=== PATIENT | male | born 1985 | race Two or more races ===

== ENCOUNTER 2016-10-08 08:07 | Day surgery (SDC) | payer BC, MEDICAID ==
[2016-10-08] MEDS ORDERED: Lactated Ringers 1,000 ML IV SCH (08:15)
[2016-10-08] MEDS ORDERED: Sodium Chloride 0.9% 10 ML Syringe FLUSH PRN (08:15)
[2016-10-08] MEDS ORDERED: Lidocaine 2% 100 MG/5 ML Syringe IVPUSH ONE (10:00)
[2016-10-08] MEDS ORDERED: Midazolam 1 MG/ML 2 ML SDV IV ONE (10:00)
[2016-10-08] MEDS ORDERED: fentaNYL 100 MCG/2 ML SDV IV ONE (10:00)
[2016-10-08] MEDS ORDERED: Propofol 200 MG/20 ML SDV IV ONE (10:00)
--- NOTE | 2016-10-08 10:26 | PCM.OPNOTE ---
- General Post-Op/Procedure Note Date of Surgery/Procedure: 10/08/16 Operative Procedure(s): egd with bx Findings: gastritis irregular z line Pre Op Diagnosis: hx of H pylori infection Post-Op Diagnosis: gastritis. irregular z line Anesthesia Technique: MAC Primary Surgeon: Abilio Sanderson Anesthesia Provider: Hoa Ge Pathology: stomach and esophagus Complications: None Condition: Good Free Text/Narrative:: see dictation
[2016-10-08 11:51] VITALS: BP 113/65
--- NOTE | 2016-10-08 16:03 | OR ---
DATE OF OPERATION: 10/08/2016 SURGEON: Abilio Sanderson MD PROCEDURE PERFORMED: Esophagogastroduodenoscopy with cold forceps biopsy. PREOPERATIVE DIAGNOSIS: History of Helicobacter pylori with return of symptoms. POSTOPERATIVE DIAGNOSIS: Gastritis and irregular Z-line. INDICATIONS FOR PROCEDURE: This is a 30-year-old white male, who was recently treated for Helicobacter pylori. His symptoms have returned, and he was offered and accepted an EGD. DESCRIPTION OF OPERATION: After an excellent IV sedation was administered, the bite block was inserted. The flexible endoscope was passed without difficulty down the patient's esophagus into the stomach. The stomach was insufflated. Scope was passed through the pylorus to the second portion of the duodenum and slowly withdrawn. The following findings were noted. Duodenum was unremarkable. Stomach demonstrated diffuse gastritis. Multiple biopsies were taken. On withdrawing the scope to the esophagus, there was noted to have a highly irregular Z-line consistent with French's esophagus. Multiple biopsies were taken. The remainder of the esophageal exam was unremarkable. The stomach was deflated, scope was removed. The patient tolerated the procedure well and was taken to recovery in good condition. /[id number] /MODL
== END 2016-10-08 11:18 | disposition home or self-care (01) ==
LOC: FB.SDS 08:07
PROVIDERS: ATTEND Surgery
DX: K29.50 Unspecified chronic gastritis without bleeding (principal); K20.9 Esophagitis, unspecified; K22.70 Barrett's esophagus without dysplasia; K22.9 Disease of esophagus, unspecified; F17.210 Nicotine dependence, cigarettes, uncomplicated; Z79.899 Other long term (current) drug therapy; Z88.2 Allergy status to sulfonamides
CPT/HCPCS: 43239; 88305; 88313; 88342; J2250; J2704; J3010; J7120

== ENCOUNTER 2016-12-24 15:00 | Emergency (ER) | payer BC, MEDICAID ==
[2016-12-24] MEDS ORDERED: Lidocaine 2% with EPINEPHrine 1:200,000 20 ML SDV INFILT SCH (15:30)
[2016-12-24 16:26] VITALS: BP 150/97
--- NOTE | 2016-12-29 10:57 | ER ---
DATE SEEN: 12/24/2016 CHIEF COMPLAINT: Left jaw tooth pain. HISTORY OF PRESENT ILLNESS: The patient complains of onset of severe pain today. The patient was seen at 1508 hours. He notes that he has had this pain on off for 4 years, but it has gotten worse. When he bends over, the pain increases. When he uses a saw at [facility], he bends over frequently. He smokes half a pack of cigarettes per day. Alcohol, one evening in a week, which includes 2 to 3 drinks. He is single. He has 4 children. He is . 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 He has no desire for pain medicines. PAST MEDICAL HISTORY: Significant acid peptic disease. He is on Protonix. He has just seen Dr. Sanderson and had an EGD, which was positive (3 months ago). He has been on Protonix for 3 months. ALLERGIES: Sulfa. MEDICATIONS: Protonix daily. No diabetes, heart disease, high blood pressure, asthma, or other serious illnesses. REVIEW OF SYSTEMS: Negative, except for noted above. PHYSICAL EXAMINATION: VITAL SIGNS: Blood pressure 142/90, heart rate 71, respirations 18, oxygen saturation 100%, temperature is 36.7 degrees, and 71.6 kg. CONSTITUTIONAL: Alert man in duus-zi-awyeovto distress. Unshaven. HEENT: PERRLA intact. Pharynx without abnormality, except for he has moderate carious teeth and multiple teeth with fractured crowns. Some teeth are missing. Percussion to tooth #16 causes marked pain. Mandible freely mobile. Minimal cervical adenopathy. LUNGS: Clear to auscultation without rales, rhonchi, or wheezes. HEART: S1, S2. No murmur. ABDOMEN: Soft. No hepatosplenomegaly. DERMIS: Negative. ASSESSMENT: #16 tooth periapical abscess. PLAN: 1. Treat with Amoxil 500 mg t.i.d., 30 tablets prescribed. 2. Follow up with dentist. 3. No narcotics per the patient's request. 4. Tylenol 1000 mg q.i.d., no more than 4000 per day. 5. History of chemical addiction. Does not want drugs for pain or narcotics, and he refused them. PROCEDURE: The patient had an alveolar block with 2% lidocaine with epinephrine. The patient tolerated the procedure well. He had a good result. /[id number] VÍCTOR/BRANDY
== END 2016-12-24 16:05 | disposition home or self-care (01) ==
LOC: FB.ED 15:00
DX: K04.7 Periapical abscess without sinus (principal); F17.210 Nicotine dependence, cigarettes, uncomplicated; Z79.899 Other long term (current) drug therapy; Z88.2 Allergy status to sulfonamides
CPT/HCPCS: 64400; 99282

== ENCOUNTER 2017-04-04 12:47 | Emergency (ER) | payer BC, MEDICAID ==
[2017-04-04] MEDS ORDERED: FLU Vacc QS 2017-18 (36mos UP)/PF 60 MCG/0.5 ML Syringe IM ONE (13:30)
--- NOTE | 2017-04-04 13:33 | EDM.PDOC ---
ED HPI GENERAL MEDICAL PROBLEM - General Chief Complaint: Skin Complaint Stated Complaint: BLISTERS ON HAND AND FEET Time Seen by Provider: 04/04/17 13:15 Source of Information: Reports: Patient History Limitations: Reports: No Limitations - History of Present Illness INITIAL COMMENTS - FREE TEXT/NARRATIVE: Aneesh comes to [facility] ED with sxs of a rash on the hands and feet, preceded by a flu like illness including muscle aches, low grade fever, loss of appetite , and some recent GI upset including diarrhea. He did attend a birthday alliance party last week, and daughter of girlfriend was recently diagnosed with H-F-M disease. He has taken no meds. Generalized Pain Score (Numeric/FACES): 2 - Related Data Allergies Allergy/AdvReac Type Severity Reaction Status Date / Time Sulfa (Sulfonamide Allergy Severe Rash Verified 04/04/17 13:03 Antibiotics) Home Meds: Home Meds Pantoprazole Sodium 40 mg PO DAILY 12/24/16 [History] Past Medical History - Past Health History Medical/Surgical History: Denies Medical/Surgical History Cardiovascular History: Reports: None Respiratory History: Reports: None Gastrointestinal History: Reports: GERD Genitourinary History: Reports: None [employer] History: Reports: None Musculoskeletal History: Reports: None Neurological History: Reports: None Psychiatric History: Reports: None Endocrine/Metabolic History: Reports: None Hematologic History: Reports: None Immunologic History: Reports: None Oncologic (Cancer) History: Reports: None Dermatologic History: Reports: Eczema - Past Surgical History Head Surgeries/Procedures: Reports: None HEENT Surgical History: Reports: Oral Surgery GI Surgical History: Reports: EGD Social & Family History - Family History Family Medical History: Noncontributory - Tobacco Use Smoking Status *Q: Current Every Day Smoker Years of Tobacco use: 12 Packs/Tins Daily: 0.5 Used Tobacco, but Quit: No Second Hand Smoke Exposure: Yes - Caffeine Use Caffeine Use: Reports: Energy Drinks - Recreational Drug Use Recreational Drug Use: No Drug Use in Last 12 Months: No Recreational Drug Type: Reports: Methamphetamine ED ROS GENERAL - Review of Systems Review Of Systems: See Below Constitutional: Reports: Fever, Malaise, Decreased Appetite HEENT: Reports: No Symptoms Respiratory: Reports: No Symptoms Cardiovascular: Reports: No Symptoms Endocrine: Reports: No Symptoms GI/Abdominal: Reports: Diarrhea, Decreased Appetite : Reports: No Symptoms Musculoskeletal: Reports: Muscle Pain Skin: Reports: Rash Neurological: Reports: No Symptoms Psychiatric: Reports: No Symptoms Hematologic/Lymphatic: Reports: No Symptoms Immunologic: Reports: No Symptoms ED EXAM, SKIN/RASH Exam: See Below Exam Limited By: No Limitations General Appearance: Alert, WD/WN, No Apparent Distress, Anxious Eye Exam: Bilateral Eye: Normal Inspection, PERRL Ears: Normal External Exam, Normal TMs Nose: Normal Inspection Throat/Mouth: Normal Teeth, Normal Voice, Inflammation (palate; numerous caried teeth) Head: Normocephalic Neck: Normal Inspection, Supple, Non-Tender Respiratory/Chest: Lungs Clear, Normal Breath Sounds Cardiovascular: Regular Rate, Rhythm, No Murmur GI/Abdominal: Normal Bowel Sounds, Soft, Non-Tender, No Organomegaly, No Distention, No Mass Back Exam: Normal Inspection Extremities: Normal Range of Motion, Non-Tender, Other (small erythematous macules of the palms and soles) Neurological: Alert, Oriented, CN II-XII Intact, Normal Gait Psychiatric: Normal Affect, Anxious Skin: Warm, Dry, Rash (small macular lesions of the palms and soles) Course - Vital Signs Text/Narrative:: Aneesh remained stable at the [facility] ED. No meds were administered. Last Recorded V/S: Last Vital Signs Temp 36.8 C 04/04/17 13:05 Pulse 84 04/04/17 13:05 Resp 18 04/04/17 13:05 BP 151/89 H 04/04/17 13:05 Pulse Ox 100 04/04/17 13:05 - Orders/Labs/Meds Labs: Laboratory Tests 04/04/17 Range/Units 13:55 WBC 7.4 (4.5-12.0) X10-3/uL RBC 5.22 (4.30-5.75) x10(6)uL Hgb 15.1 (11.5-15.5) g/dL Hct 44.2 (30.0-51.3) % MCV 84.6 (80-96) fL MCH 28.9 (27.7-33.6) pg MCHC 34.1 (32.2-35.4) g/dL RDW 12.7 (11.5-15.5) % Plt Count 295 (125-369) X10(3)uL MPV 7.6 (7.4-10.4) fL Neut % (Auto) 68.8 (46-82) % Lymph % (Auto) 20.5 (13-37) % Gilchrist % (Auto) 9.7 (4-12) % Eos % (Auto) 0 L (1.0-5.0) % Baso % (Auto) 1 (0-2) % Neut # (Auto) 5.2 (1.6-8.3) # Lymph # (Auto) 1.5 (0.6-5.0) # Gilchrist # (Auto) 0.7 (0.0-1.3) # Eos # (Auto) 0.0 (0.0-0.8) # Baso # (Auto) 0.0 (0.0-0.2) # Meds: Medications Discontinued Medications Generic Name Dose Route Start Last Admin Trade Name Freq PRN Reason Stop Dose Admin Influenza Virus Vaccine 60 mcg 04/04/17 13:30 04/04/17 13:32 Fluzone Quad [id number] IM 04/04/17 13:31 60 mcg .ONCE ONE Administration Departure - Departure Time of Disposition: 14:22 Disposition: Home, Self-Care 01 Condition: Good Clinical Impression: Hand, foot and mouth disease - Discharge Information Referrals: Shree Monteiro MD [Primary Care Provider] - Forms: ED Department Discharge - Problem List & Annotations (1) Hand, foot and mouth disease SNOMED Code(s): 630530525 Code(s): B08.4 - ENTEROVIRAL VESICULAR STOMATITIS WITH EXANTHEM Status: Acute Current Visit: Yes Annotation/Comment:: The CBC is normal. Probable H- F-M disease. I discussed the natural hx of this enteroviral illness, and suggested sxs cares and universal precautions. He may return to work if needed. - Problem List Review Problem List Initiated/Reviewed/Updated: Yes - Assessment/Plan Plan: Follow up with PCP if needed.
[2017-04-04 14:43] VITALS: BP 140/78
== END 2017-04-04 14:25 | disposition home or self-care (01) ==
LOC: FB.ED 12:47
DX: B08.4 Enteroviral vesicular stomatitis with exanthem (principal); F17.210 Nicotine dependence, cigarettes, uncomplicated
CPT/HCPCS: 36415; 85025; 90471; 90686; 99282

== ENCOUNTER 2021-10-28 05:07 | Emergency (ER) | payer BC, MEDICAID ==
[2021-10-28] MEDS ORDERED: Alum Hydroxide/Mag Hydroxide 15 ML, Lidocaine 2% 15 ML PO ONE ×4 (05:22→06:47)
[2021-10-28] MEDS ORDERED: LORazepam 2 MG/ML SDV IM ONE (05:43)
[2021-10-28 08:42] VITALS: BP 140/103; PULSE 96
== END 2021-10-28 07:04 | disposition home or self-care (01) ==
LOC: FB.ED 05:07
DX: K21.9 Gastro-esophageal reflux disease without esophagitis (principal); F41.0 Panic disorder [episodic paroxysmal anxiety]; F17.210 Nicotine dependence, cigarettes, uncomplicated; Z88.2 Allergy status to sulfonamides; Z86.16 Personal history of COVID-19; Z79.899 Other long term (current) drug therapy
CPT/HCPCS: 36415; 80053; 84484; 85025; 99285; A9270; 93010; 99282

== ENCOUNTER 2022-10-25 10:06 | Emergency (ER) | payer BC, MEDICAID ==
[2022-10-25] MEDS: LORazepam 2 MG/ML SDV IVPUSH ONE (10:09)
[2022-10-25] MEDS: Sodium Chloride 0.9% 1,000 ML IV SCH (10:20)
[2022-10-25 10:32] LABS: BASOPHILS PERCENT AUTO 0.5 % (0.3-3.8); EOSINOPHILS PERCENT AUTO 0.3 % (0.1-6.8); HEMATOCRIT 44.8 % (38.3-50.1); HEMOGLOBIN 14.8 g/dL (12.9-17.7); LYMPHOCYTES ABSOLUTE AUTO 1.2 x10-3/uL (0.5-4.5); LYMPHOCYTES PERCENT AUTO 12.5 % (15.8-45.3); MEAN CORPUSCULAR HEMOGLOBIN 29.3 pg (27.0-33.3); MEAN CORPUSCULAR HGB CONC 33.1 g/dL (28.7-35.3); MEAN CORPUSCULAR VOLUME 88.4 fL (80.8-98.7); MEAN PLATELET VOLUME 7.6 fL (6.7-11.0); MONOCYTES ABSOLUTE AUTO 0.6 x10-3/uL (0.0-1.2); MONOCYTES PERCENT AUTO 6.3 % (5.5-15.2); NEUTROPHILS ABSOLUTE AUTO 7.4 x10-3/uL (1.7-6.9); NEUTROPHILS PERCENT AUTO 80.4 % (40.3-71.8); PLATELET COUNT,PLT 289 x10(3)uL (117-477); RED BLOOD CELL COUNT 5.06 x10(6)uL (3.90-5.90); RED CELL DISTRIBUTION WIDTH 13.1 % (12.4-15.0); WHITE BLOOD CELL COUNT,WBC 9.2 x10-3/uL (3.2-10.1)
[2022-10-25 10:37] LABS: BLOOD UREA NITROGEN,BUN 7 mg/dL (7-18); BUN/CREATININE RATIO 7.8 (9-20); CALCIUM 8.8 mg/dL (8.6-10.2); CARBON DIOXIDE,CO2 20 mmol/L (21-32); CHLORIDE,CL 105 mmol/L (100-110); CREATININE 0.9 mg/dL (0.70-1.30); ESTIMATED GFR 114 mL/min (>60); GLUCOSE RANDOM 92 mg/dL (80-116); POTASSIUM,K 3.4 mmol/L (3.5-5.3); SODIUM,NA 141 mmol/L (135-145)
[2022-10-25 10:46] LABS: A/G RATIO 1.2; ALBUMIN 4.3 g/dL (3.5-5.2); PROTEIN TOTAL,TP 7.9 g/dL (6.0-8.0)
[2022-10-25 10:47] LABS: ALANINE AMINOTRANSFERASE,ALT 40 U/L (12-36); ALKALINE PHOSPHATASE 74 IU/L (56-112); ASPARTATE AMNIOTRANSFERASE,AST 44 IU/L (5-25); BILIRUBIN TOTAL 0.4 mg/dL (0.1-1.3)
[2022-10-25 11:23] LABS: AMPHETAMINES SCREEN, URINE NEGATIVE (NEGATIVE); BARBITURATE SCREEN,URINE NEGATIVE (NEGATIVE); BENZODIAZEPINES SCREEN,URINE NEGATIVE (NEGATIVE); BUPRENORPHINE SCREEN,URINE NEGATIVE (NEGATIVE); METHADONE SCREEN, URINE NEGATIVE (NEGATIVE); METHAMPHETAMINE SCREEN, URINE NEGATIVE (NEGATIVE); OXYCODONE SCREEN,URINE NEGATIVE (NEGATIVE); PROPOXYPHENE SCREEN,URINE NEGATIVE (NEGATIVE); THC SCREEN,URINE POSITIVE (NEGATIVE)
[2022-10-25 12:34] VITALS: BP 128/95; PULSE 88
== END 2022-10-25 12:17 | disposition home or self-care (01) ==
LOC: FB.ED 10:06
DX: R45.1 Restlessness and agitation (principal); T50.995A Adverse effect of other drugs, medicaments and biological substances, initial encounter; K21.9 Gastro-esophageal reflux disease without esophagitis; Z86.16 Personal history of COVID-19; Z88.2 Allergy status to sulfonamides; Z79.899 Other long term (current) drug therapy
CPT/HCPCS: 36415; 80053; 80307; 84484; 85025; 93005; 96361; 96374; 99285; J2060; J7030

== ENCOUNTER 2023-08-03 09:41 | Emergency (ER) | payer BC ==
[2023-08-03] MEDS: Sodium Chloride 0.9% 1,000 ML IV SCH (10:02)
[2023-08-03] MEDS: Sodium Chloride 0.9% 10 ML Syringe FLUSH PRN (10:02)
[2023-08-03] MEDS: Ondansetron 4 MG/2 ML SDV IVPUSH ONE (10:02)
[2023-08-03 10:06] LABS: BASOPHILS ABSOLUTE AUTO 0.1 x10-3/uL (0.0-0.3); BASOPHILS PERCENT AUTO 0.9 % (0.3-3.8); EOSINOPHILS ABSOLUTE AUTO 0.2 x10-3/uL (0.0-0.6); EOSINOPHILS PERCENT AUTO 1.8 % (0.1-6.8); HEMATOCRIT 44.2 % (38.3-50.1); LYMPHOCYTES ABSOLUTE AUTO 3.2 x10-3/uL (0.5-4.5); LYMPHOCYTES PERCENT AUTO 34.7 % (15.8-45.3); MEAN CORPUSCULAR HEMOGLOBIN 29.5 pg (27.0-33.3); MEAN CORPUSCULAR HGB CONC 33.9 g/dL (28.7-35.3); MEAN CORPUSCULAR VOLUME 87.1 fL (80.8-98.7); MEAN PLATELET VOLUME 7.8 fL (6.7-11.0); MONOCYTES ABSOLUTE AUTO 0.8 x10-3/uL (0.0-1.2); NEUTROPHILS ABSOLUTE AUTO 4.9 x10-3/uL (1.7-6.9); NEUTROPHILS PERCENT AUTO 53.6 % (40.3-71.8); PLATELET COUNT,PLT 316 x10(3)uL (117-477); RED BLOOD CELL COUNT 5.08 x10(6)uL (3.90-5.90); RED CELL DISTRIBUTION WIDTH 13.4 % (12.4-15.0); WHITE BLOOD CELL COUNT,WBC 9.2 x10-3/uL (3.2-10.1)
[2023-08-03] MEDS: Morphine 4 MG/ML VIAL IVPUSH ONE (10:06)
[2023-08-03 10:12] LABS: BLOOD UREA NITROGEN,BUN 11 mg/dL (7-18); CALCIUM 8.9 mg/dL (8.6-10.2); CARBON DIOXIDE,CO2 27 mmol/L (21-32); CHLORIDE,CL 103 mmol/L (100-110); CREATININE 1.1 mg/dL (0.70-1.30); EST CRCL DRUG DOSING (CG) 94.94 mL/min; ESTIMATED GFR 89 mL/min (>60); GLUCOSE RANDOM 117 mg/dL (80-116); POTASSIUM,K 3.3 mmol/L (3.5-5.3); SODIUM,NA 142 mmol/L (135-145)
[2023-08-03 10:18] LABS: A/G RATIO 1.2; ALANINE AMINOTRANSFERASE,ALT 48 U/L (12-36); ALBUMIN 4.2 g/dL (3.5-5.2); ALKALINE PHOSPHATASE 97 IU/L (56-112); AMYLASE 70 U/L (25-115); ASPARTATE AMNIOTRANSFERASE,AST 29 IU/L (5-25); BILIRUBIN TOTAL 0.5 mg/dL (0.1-1.3); PROTEIN TOTAL,TP 7.6 g/dL (6.0-8.0)
[2023-08-03] MEDS: Iopamidol 755 Mg/ML 100 ML Bottle IV SCH (10:20)
[2023-08-03] MEDS: Alum Hydroxide/Mag Hydroxide 30 ML, Lidocaine 2% 30 ML PO ONE (10:40)
[2023-08-03] MEDS: Ketorolac 30 MG/ML SDV IVPUSH ONE (11:25)
[2023-08-03 11:27] LABS: BILIRUBIN,URINE NEGATIVE (NEGATIVE); GLUCOSE,URINE NORMAL (NORMAL); KETONES,URINE NEGATIVE (NEGATIVE); LEUKOCYTE ESTERASE,URINE SMALL (NEGATIVE); NITRITE,URINE NEGATIVE (NEGATIVE); OCCULT BLOOD,URINE NEGATIVE (NEGATIVE); PH,URINE 6.5 (5.0-6.5); PROTEIN,URINE TRACE mg/dL (NEGATIVE); UROBILINOGEN,URINE NORMAL (NEGATIVE)
[2023-08-03 11:29] LABS: APPEARANCE,URINE CLEAR (CLEAR); COLOR,URINE YELLOW (YELLOW)
[2023-08-03 11:31] LABS: BACTERIA,URINE NOT SEEN (NS); RBC,URINE NOT SEEN (0-5); SQUAMOUS EPITHELIAL CELLS,UR NOT SEEN (NS,R,O); WBC,URINE NOT SEEN (0-5)
[2023-08-03 11:46] VITALS: BP 120/83; PULSE 65
== END 2023-08-03 11:30 | disposition home or self-care (01) ==
LOC: FB.ED 09:41
DX: K29.70 Gastritis, unspecified, without bleeding (principal); K80.20 Calculus of gallbladder without cholecystitis without obstruction; K21.9 Gastro-esophageal reflux disease without esophagitis; Z86.16 Personal history of COVID-19; Z79.899 Other long term (current) drug therapy; Z88.2 Allergy status to sulfonamides
CPT/HCPCS: 36415; 74177; 80053; 81001; 82150; 83690; 85025; 96361; 96374; 96375; 99284; 99284-25; A9270-GY; J1885; J2270; J2405; J3490; J7030; Q9967